=== PATIENT | male | born 1945 | race Caucasian/White ===

== ENCOUNTER → 2021-07-18 | Outpatient (CLI) | payer MEDICARE, OTHER ==
[~2021-07-18] MED LIST: ASPIR 8181 MG PO; BYSTOLIC10 MG PO; CELEBREX200 MG PO; EDARBYCLOR 40-1 EACH PO; ELAVIL 25 MG TA25 MG PO; FENOFIBRATE160 MG PO; FISH OIL 500 M1 EAC2 PO; HYDRALAZINE HCL50 MG PO; LIPITOR TAB 2020 MG PO; MULTIVITAMINS1 EAC1 PO; OMEPRAZOLE40 MG PO; PLAQUENIL200 MG PO; PLAVIX 75 MG TA75 MG PO; PROSCAR5 MG PO; VITAMIN D250000 UNIT PO
== END ==
LOC: EXRD 08:36
DX: M25.511 Pain in right shoulder (principal); M11.211 Other chondrocalcinosis, right shoulder; M81.0 Age-related osteoporosis without current pathological fracture; M19.011 Primary osteoarthritis, right shoulder; M47.814 Spondylosis without myelopathy or radiculopathy, thoracic region
CPT/HCPCS: 73030